=== PATIENT | male | born 1945 | race Caucasian/White ===

== ENCOUNTER → 2017-11-05 | Outpatient (CLI) | payer MEDICARE, OTHER ==
[~2017-11-05] MED LIST: BIOTIN1000 MCG PO; CALCIUM 600 +1 EAC1 PO; LIPITOR 20 MG T20 M1 PO; LYRICA 50 MG50 MG PO; MAGNESIUM PO; OMEPRAZOLE 20 M20 M1 PO; OXYCODONE HCL 55 MG PO; PACERONE 200 M200 M1 PO; POTASSIUM20 PO; SYNTHROID112 MCG PO; SYNTHROID25 MCG PO; TOPROL XL25 MG PO; UNICOMPLEX M TA1 TA1 PO; VITAMINC500 PO; XELJANZ5 MG PO
== END ==
LOC: M.WC 00:58
DX: E11.622 Type 2 diabetes mellitus with other skin ulcer (principal); L98.421 Non-pressure chronic ulcer of back limited to breakdown of skin; L89.110 Pressure ulcer of right upper back, unstageable; E11.319 Type 2 diabetes mellitus with unspecified diabetic retinopathy without macular edema; M06.9 Rheumatoid arthritis, unspecified; E03.9 Hypothyroidism, unspecified; E78.00 Pure hypercholesterolemia, unspecified; E11.22 Type 2 diabetes mellitus with diabetic chronic kidney disease; I12.0 Hypertensive chronic kidney disease with stage 5 chronic kidney disease or end stage renal disease; N18.6 End stage renal disease; Z99.2 Dependence on renal dialysis; Z87.891 Personal history of nicotine dependence; Z95.1 Presence of aortocoronary bypass graft; Z95.0 Presence of cardiac pacemaker

== ENCOUNTER → 2017-11-08 | Day surgery (SDC) | payer MEDICARE, OTHER ==
[2017-11-08 11:43] LABS: HEMATOCRIT 32.9 % (42.0-52.0); HEMOGLOBIN 10.5 gm/dL (14.0-18.0); MCH 30.3 pg (26.0-34.0); MCV 94.6 fL (80.0-100.0); MPV 7.6 fl. (7.2-11.1); RBC 3.48 mil/uL (4.50-6.00); RDW-CV 18.4 % (10.5-14.5); WBC 2.7 thou/uL (4.0-11.0)
[2017-11-08 11:50] LABS: CALCIUM 7.8 mg/dL (8.5-10.1); CREATININE 4.1 mg/dL (0.6-1.3); POTASSIUM 3.9 mmol/L (3.5-5.1)
--- NOTE | 2017-11-08 13:40 | H ---
[place] [address] HISTORY AND PHYSICAL Name: ALDO RIOS Room: [facility]#: [id number] Admission: 11/08/17 Attend Phys: Caren Moeller MD Discharge: Date of : 45 Report #: [id number] THIS REPORT FOR: //name// CC: Stewart Moeller DATE OF SERVICE: 11/08/2017 ADMITTING DIAGNOSIS: Right mid back necrotic skin lesion. HISTORY OF PRESENT ILLNESS: The patient is a 72-year-old gentleman who presents to my wound care clinic on 11/05/2017 for consult for an OR debridement. The patient was reportedly seen initially by Wound Care doctors at [place] with an enlarging necrotic area of skin on his back. It has progressed to a place of necrosis and due to tenderness it was recommended that he have it surgically debrided in the operating room. He is being prepared for that. PAST MEDICAL HISTORY: His other significant medical history is developing renal failure and has a dialysis fistula. PAST SURGICAL HISTORY: An open cholecystectomy and a triple heart bypass. ALLERGIES: He reports no known drug allergies. REVIEW OF SYSTEMS: Otherwise, unremarkable. PHYSICAL EXAMINATION: GENERAL: He is a modestly obese male, sitting up, in no acute distress. HEAD, EYES, EARS, NOSE, THROAT: Unremarkable. NECK: Supple, with no jugular venous distention. LUNGS: Equal breath sounds and clear. BACK: On his right upper back he has a wound that measures 4.5 cm in length, 6 cm in width. It is dry and firm and necrotic with some mild tenderness. His lower back was unremarkable. EXTREMITIES: Noted an active fistula in the left upper extremity. He has some mild edema of the lower extremities. HEART: He has an irregular rhythm as well on his heart examination. IMPRESSION: A dried eschar, large lesion on his right upper back. I have outlined surgical debridement to remove this eschar and indicated procedure with application of a negative pressure wound therapy device. [place] [address] HISTORY AND PHYSICAL Name: ALDO RIOS Room: [facility]#: [id number] Admission: 11/08/17 Attend Phys: Caren Moeller MD Discharge: Date of : 45 Report #: [id number] procedure with its associated risks and benefits, answered his questions. He understands and wishes to proceed with surgical debridement. <ELECTRONICALLY SIGNED> By: Caren Moeller MD 11/08/17 1340 1356 1419Caren Moeller MD /nt
--- NOTE | 2017-11-08 17:31 | EKG ---
[place] [address] ELECTROCARDIOGRAM REPORT Name: GABRIELALDO Alfredito Room: [facility]#: [id number] Admission: 11/08/17 Attend Phys: Caren Moeller MD Discharge: Date of : 45 Report #: [id number] THIS REPORT FOR: //name// [facility] Test Date: 2017-11-08 Test Time: 10:59:34 Pat Name: ALDO RIOS Department: Room: Gender: M [employer]: 27 : 1945 Requested By: Caren Moeller Order Number: [id number] Reading MD: Sukhjinder Moreland Measurements Intervals [place] Rate: 75 P: 50 FL: 129 QRS: 229 QRSD: 159 T: 71 QT: 473 QTc: 529 Interpretive Statements Ventricular-paced rhythm No further analysis attempted due to paced rhythm Compared to ECG 08/07/2013 13:52:20 Sinus rhythm no longer present Ventricular premature complex(es) no longer present First degree AV block no longer present Right bundle-branch block no longer present Left-axis deviation no longer present Intraventricular conduction delay no longer present Electronically Signed On 11-08-2017 17:31:41 SOLE TACKER by Sukhjinder Moreland [email or web address] <ELECTRONICALLY SIGNED> By: Sukhjinder Moreland MD, FACC 11/08/17 1731 1059 1059 Sukhjinder Moreland MD, FACC /EPI
--- NOTE | 2017-11-12 09:47 | OP ---
[address] [address] OPERATIVE REPORT Name: GABRIELALDO Alfredito Room: [facility]#: [id number] Admission: 11/08/17 Attend Phys: Caren Moeller MD Discharge: Date of : 45 Report #: [id number] THIS REPORT FOR: //name// CC: Stewart Moeller DATE OF SERVICE: 11/08/2017 PREOPERATIVE DIAGNOSIS: Pressure ulcer, right upper back. POSTOPERATIVE DIAGNOSIS: Pressure ulcer, right upper back, pending final pathology. OPERATIVE PROCEDURE: Wide local excision down to and including muscle of a right upper back ulcer, dimensions length 4 cm, width 6.5 cm and depth 1 cm. ANESTHESIA: Laryngeal mask with 0.5% Marcaine with epinephrine placed into the wound site. DESCRIPTION OF PROCEDURE: The patient was placed under laryngeal mask anesthesia and then positioned on his left lateral decubitus position and the right upper back was carefully prepped and draped in a sterile fashion. A timeout taken, antibiotics administered and I began by using a pickup #10 scalpel blade to sharply excise necrotic skin and necrotic muscle back to healthy bleeding tissue. A small sample on the patient's lateral lower corner was excised with normal tissue for pathology with the main specimen. Bleeding was then controlled with cautery and then, the entire wound bed was infiltrated with 20 mL of Marcaine with epinephrine mixture. Once the wound bed was cleansed and the wound dry, a 20 x 20 cm RICKEY bandage was placed into the wound bed and placed on negative pressure with a good seal during the operative procedure. Estimated blood loss 1 mL. Sponge and instrument counts correct. The patient was taken off laryngeal mask and was returned to recovery in satisfactory condition. <ELECTRONICALLY SIGNED> By: Caren Moeller MD 11/12/17 0947 1335 1530Caren Moeller MD /nt
--- NOTE | 2017-11-12 10:54 | S ---
[place] [address] SURGICAL PATH RPT PROCEDURE Name: ALDO RIOS Room: [facility]#: [id number] Admission: 11/08/17 Date of : 45 Discharge: Report #: [id number] Path Case #: [id number] PATHOLOGY REPORT COLLECTION DATE: 11/08/2017 RECEIVED DATE: 11/09/2017 SUBMITTING PHYS: Dr. Caren Moeller OTHER PHYS: Dr. Stewart Easley SPECIMEN(S) RECEIVED: A.Skin and muscle upper right back B.Skin and muscle upper right back for malignancy * * * * * * * * * * * * FINAL DIAGNOSIS: A. Skin and muscle upper right back: - Necrotic and acutely inflamed skin, fibrofatty/fibrovascular connective tissue and skeletal muscle, negative for malignancy. B. Skin and muscle upper right back (for malignancy): - Necrotic and acutely inflamed skin and fibrofatty/fibrovascular connective tissue, negative for malignancy. (LIANET:pit; 11/12/2017) PATHOLOGIST: Aguilar Edwards M.D. REPORT ELECTRONICALLY SIGNED BY: Aguilar Edwards M.D. DATE/TIME: 11/12/2017 10:53 * * * * * * * * * * * * GROSS PATHOLOGY: A. The specimen is received in formalin, labeled "Aldo Rios, skin and muscle upper right back". Received are multiple segments of dark adams-brown, necrotic-appearing skin admixed with pale yellow fibroadipose tissue and ritter-adams muscle measuring 6.4 x 5.8 x 0.8 cm in aggregate dimensions. The specimen is submitted representatively in cassette A1. B. The specimen is received in formalin, labeled "Aldo Rios, skin and muscle upper right back for malignancy". Received is an irregular segment of pale yellow fibroadipose tissue admixed with dark adams-brown soft tissue and ritter-adams muscle with attached pale adams, possible skin measuring 1.7 x 1.3 x 0.6 cm in greatest dimensions. The specimen is inked, serially sectioned and submitted entirely in cassettes B1 and B2. (DAC; 11/09/2017) CLINICAL HISTORY: [place] [address] SURGICAL PATH RPT PROCEDURE Name: ALDO RIOS Room: [facility]#: [id number] Admission: 11/08/17 Date of : 45 Discharge: Report #: [id number] Path Case #: [id number] INITIAL CPT CODE(S): A; 08623 B; 19478 Professional services performed by [facility] at [facility] [address] [place] [address] Technical services performed by [facility] at [address] [place] [address], [facility] [address] [address]. [facility] [address] [place] [address] PHONE: [phone] DIRECTOR: Usman Small M.D. * * * END OF REPORT * * *
== END | disposition home or self-care (01) ==
LOC: M.SUR 08:51
PROVIDERS: Surgery
DX: L89.114 Pressure ulcer of right upper back, stage 4 (principal); N19 Unspecified kidney failure; E66.09 Other obesity due to excess calories; Z98.890 Other specified postprocedural states; Z79.899 Other long term (current) drug therapy; Z79.891 Long term (current) use of opiate analgesic; Z90.49 Acquired absence of other specified parts of digestive tract; Z95.828 Presence of other vascular implants and grafts

== ENCOUNTER → 2017-11-12 | Outpatient (CLI) | payer MEDICARE, OTHER | LOC: M.WC 02:22 | DX: L89.113 Pressure ulcer of right upper back, stage 3 (principal); L98.421 Non-pressure chronic ulcer of back limited to breakdown of skin; E11.622 Type 2 diabetes mellitus with other skin ulcer; G47.30 Sleep apnea, unspecified; E11.319 Type 2 diabetes mellitus with unspecified diabetic retinopathy without macular edema; M06.9 Rheumatoid arthritis, unspecified; E03.9 Hypothyroidism, unspecified; E78.00 Pure hypercholesterolemia, unspecified; E11.22 Type 2 diabetes mellitus with diabetic chronic kidney disease; I13.11 Hypertensive heart and chronic kidney disease without heart failure, with stage 5 chronic kidney disease, or end stage renal disease; N18.6 End stage renal disease; Z99.2 Dependence on renal dialysis; Z87.891 Personal history of nicotine dependence; Z95.1 Presence of aortocoronary bypass graft; Z90.49 Acquired absence of other specified parts of digestive tract ==

== ENCOUNTER → 2017-11-15 | Outpatient (CLI) | payer MEDICARE, OTHER | LOC: M.WC 02:21 | DX: E11.622 Type 2 diabetes mellitus with other skin ulcer (principal); L89.113 Pressure ulcer of right upper back, stage 3; L98.421 Non-pressure chronic ulcer of back limited to breakdown of skin; E11.319 Type 2 diabetes mellitus with unspecified diabetic retinopathy without macular edema; E11.22 Type 2 diabetes mellitus with diabetic chronic kidney disease; N18.6 End stage renal disease; E78.00 Pure hypercholesterolemia, unspecified; E03.9 Hypothyroidism, unspecified; M06.9 Rheumatoid arthritis, unspecified; G47.30 Sleep apnea, unspecified; Z87.891 Personal history of nicotine dependence; Z95.1 Presence of aortocoronary bypass graft; Z95.0 Presence of cardiac pacemaker ==

== ENCOUNTER → 2017-11-19 | Outpatient (CLI) | payer MEDICARE, OTHER | LOC: M.WC 01:22 | DX: E11.622 Type 2 diabetes mellitus with other skin ulcer (principal); L98.421 Non-pressure chronic ulcer of back limited to breakdown of skin; L89.110 Pressure ulcer of right upper back, unstageable; E11.319 Type 2 diabetes mellitus with unspecified diabetic retinopathy without macular edema; M06.9 Rheumatoid arthritis, unspecified; E03.9 Hypothyroidism, unspecified; E78.00 Pure hypercholesterolemia, unspecified; E11.22 Type 2 diabetes mellitus with diabetic chronic kidney disease; I12.0 Hypertensive chronic kidney disease with stage 5 chronic kidney disease or end stage renal disease; N18.6 End stage renal disease; Z99.2 Dependence on renal dialysis; Z87.891 Personal history of nicotine dependence; Z95.1 Presence of aortocoronary bypass graft; Z95.0 Presence of cardiac pacemaker ==

== ENCOUNTER → 2017-11-27 | Outpatient (CLI) | payer MEDICARE, OTHER | LOC: M.WC 01:43 | DX: E11.622 Type 2 diabetes mellitus with other skin ulcer (principal); L98.421 Non-pressure chronic ulcer of back limited to breakdown of skin; L89.113 Pressure ulcer of right upper back, stage 3; E11.319 Type 2 diabetes mellitus with unspecified diabetic retinopathy without macular edema; M06.9 Rheumatoid arthritis, unspecified; E03.9 Hypothyroidism, unspecified; E78.00 Pure hypercholesterolemia, unspecified; E11.22 Type 2 diabetes mellitus with diabetic chronic kidney disease; I12.0 Hypertensive chronic kidney disease with stage 5 chronic kidney disease or end stage renal disease; N18.6 End stage renal disease; Z99.2 Dependence on renal dialysis; Z87.891 Personal history of nicotine dependence; Z95.1 Presence of aortocoronary bypass graft; Z95.0 Presence of cardiac pacemaker ==